=== PATIENT | female | born 1965 | race Caucasian/White ===

== ENCOUNTER 2016-10-12 15:35 | Emergency (ER) | payer MEDICARE, MEDICAID ==
[2016-10-12] MEDS ORDERED: Ondansetron ODT 4 MG TAB ONE (16:13)
--- NOTE | 2016-10-12 16:34 | RAD ---
SINGLE VIEW OF THE PELVIS 10/12/16 COMPARISON: None. HISTORY: Fall with pelvic pain. FINDINGS: Single view of the pelvis shows no evidence of acute fracture or dislocation. No significant degener ative changes are seen. IMPRESSION: Unremarkable exam. POS: VINCE
--- NOTE | 2016-10-12 16:35 | RAD ---
THREE VIEWS OF THE SACRUM AND COCCYX 10/12/16 HISTORY: Fall with sacral/coccygeal pain. FINDINGS: Three views of the sacrum/coccyx shows no evidence of displaced sacral or coccygeal fracture. The sa cral ala appears symmetric. The sacroiliac joints are unremarkable. IMPRESSION: No evidence of displaced sacral or coccygeal fracture. POS: [facility]UGUST
[2016-10-12] MEDS ORDERED: Diazepam 5 MG TAB ONE (17:00)
== END 2016-10-12 17:00 | disposition home or self-care (01) ==
LOC: MADERS 15:35
DX: S70.02XA Contusion of left hip, initial encounter (principal); M54.5 Low back pain; E11.9 Type 2 diabetes mellitus without complications; E66.01 Morbid (severe) obesity due to excess calories; F17.210 Nicotine dependence, cigarettes, uncomplicated; Z79.4 Long term (current) use of insulin; Z79.899 Other long term (current) drug therapy; Z79.891 Long term (current) use of opiate analgesic; W01.0XXA Fall on same level from slipping, tripping and stumbling without subsequent striking against object, initial encounter
CPT/HCPCS: 72170; 72220; 96372; J2270; Q0162